=== PATIENT | female | born 1985 | race African-American/Black ===

== ENCOUNTER 2023-01-08 01:19 | Emergency (ER) | payer SELFPAY ==
[2023-01-08 01:20] VITALS: RESP 22; O2SAT 0; BMI 32.3
--- NOTE | 2023-01-08 01:27 | PC.NURSE ---
Patient came in with police to be checked out. Patient refused VS and got very anxious when we would get close to her. aware.
[2023-01-08 01:30] VITALS: BP 0/0; PULSE 0; RESP 20; TEMP -17.7; TEMP 0
--- NOTE | 2023-01-08 01:35 | HMH.EDGENADL ---
Discharge Plan Disposition Patient Disposition: Home, Self-Care Condition: Good Clinical Impressions Clinical Impression: Anxiety hyperventilation Instructions Patient Instructions: DI for Anxiety -- Adult Discharge ED Provider: David Solano General Adult HPI General Chief complaint: Anxiety Stated complaint: behavioral Time Seen by Provider: 01/08/23 01:20 Mode of Arrival: Ambulatory Source of Information: Patient Limitations: No Limitations Description of Symptoms (Recalled from ER Triage Doc. by RN): Patient brought in by police to be checked out. Patient smelled of ETOH and was very anxious. History of Present Illness HPI narrative: 29-year-old female, reported history of borderline personality disorder, prior miscarriage, alcoholism presents with acute anxiety. She called the police tonight because she was looking for information online regarding a suicide hotline and it instructed her to call the police. She has consistently denied any suicidal ideation or homicidal with the police and with me. She is very uncooperative with history and exam. She is refusing vital signs. She speaks without slurred speech. She speaks loudly, quickly and angrily. Police report that they brought her here to get checked out because she was hyperventilating. She is not under arrest. The patient reports that she had a miscarriage here in the past and she does not want to be here and that being here is making her symptoms worse. She is unwilling to provide any further information besides that. She feels like she was tricked into coming here. She is adamant that she wants to go home. She admits to alcohol use, chronically and tonight, but denies any other ingestions tonight. Police report that she had a hatchet when they saw her, but it has been confiscated. She reports no other access to weapons. [facility] Disclaimer: The information contained in this section may have been updated after the patient was seen, as this information can be updated by other users. Social History Smoking Status: Unknown if ever smoked alcohol intake: current current occupational status: other Travel in the last 8 weeks: None ROS Obtained: Yes other (Patient refused to answer) Physical Exam General General appearance: alert, anxious and obese Head Head exam: atraumatic and normocephalic Eye Eye exam: Present normal appearance; Absent scleral icterus ENT ENT exam: Present normal external ear exam Neck Neck exam: Present normal inspection and full ROM Chest Chest inspection: Present normal inspection and symmetric chest wall rise Respiratory Respiratory exam: Present other (Patient was hyperventilating while walking in, has a normal respiratory rate during my interactions with her.); Absent respiratory distress Cardiovascular Cardiovascular exam: Present other (Patient refused vital signs) Abdominal Exam Comment: Patient refused abdominal exam Extremities Exam Extremities exam: Present normal inspection and other (Mild abrasion to the right leg) Back Exam Back exam: Present normal inspection Neurological Exam Neurological exam: Present alert and oriented X3 Psychiatric Psychiatric exam: Present agitated and anxious; Absent homicidal ideation or suicidal ideation Skin Skin exam: Present warm and dry Medical Decision Making Medical Records Medical records reviewed: Yes I reviewed the patient's medical records. Serafin Inquiry Pt receiving controlled substance: No Vital Signs: 01/08/23 01:20 01/08/23 01:30 Temperature 0 F L Pulse Rate 0 L Respiratory Rate 22 20 Blood Pressure 0/0 L 02 Sat by Pulse Oximetry 0 L Medical Decision Narrative: 29-year-old female, reported history of borderline personality disorder, prior miscarriage, alcoholism presents with acute anxiety. She called the police [facility] because she was looking for information online regarding a suicide hotline and it instructed her to call the police.
== END 2023-01-08 01:29 | disposition home or self-care (01) ==
LOC: ER 01:25
PROVIDERS: Emergency Provider Emergency Medicine
DX: F41.9 Anxiety disorder, unspecified (principal); R45.1 Restlessness and agitation; F60.3 Borderline personality disorder; F10.20 Alcohol dependence, uncomplicated
CPT/HCPCS: 99282